=== PATIENT | female | born 1990 | race Caucasian/White ===

== ENCOUNTER 2017-05-09 22:55 | Outpatient (CLI) | payer OTHER, SELFPAY ==
[2017-05-09 23:21] VITALS: BMI 32.6
[2017-05-09 23:53] LABS: ROM Internal Control Test YES-OK TO RESULT pt. (Internal QC); ROM Patient Test Negative (Negative)
[2017-05-10 00:28] VITALS: RESP 18
--- NOTE | 2017-07-02 13:15 | OB.TRI.NOTE ---
History of Present Illness Reason For Visit: false labor Home Medications Medication Instructions Recorded Epinephrine [Epi Pen] 0.3 mg IM X1 09/07/16 Vit No.130/Iron/FA 1 each PO DAILY 09/07/16 [ Tablet] Acetaminophen [Tylenol] 325 mg PO Q8H 05/09/17 Naproxen [Naprosyn] 250 - 500 mg PO Q8H PRN PRN tablet 05/19/17 Allergies bee venom protein (honey bee) Allergy (Verified 05/17/17 15:37) Anaphylaxis codeine Allergy (Verified 05/17/17 15:37) Other hallucinations Penicillins [PCN] Allergy (Verified 05/17/17 15:37) Anaphylaxis Sulfa (Sulfonamide Antibiotics) Allergy (Verified 05/17/17 15:37) Rash latex Adverse Reaction (Verified 05/17/17 15:37) Rash Physical Exam Vitals: Vital Signs Resp 18 05/10/17 00:28 Impression/Plan False labor
== END 2017-05-10 00:28 | disposition home or self-care (01) ==
LOC: WPOUT 23:20 → WP 23:20
PROVIDERS: Family Provider Student in an Organized Health Care Education/Training Program; PCP Student in an Organized Health Care Education/Training Program; Visit Provider Obstetrics & Gynecology
DX: O47.9 False labor, unspecified (principal); Z3A.00 Weeks of gestation of pregnancy not specified
CPT/HCPCS: 59025; 59050; 84112; 99218; G0378

== ENCOUNTER 2018-06-13 20:31 | Emergency (ER) | payer OTHER, SELFPAY ==
[2018-06-13 20:31] VITALS: BP 133/67; PULSE 104; RESP 16; TEMP 36.6; O2SAT 98; BMI 27.7
[2018-06-13 22:04] VITALS: BP 112/67; PULSE 78; RESP 16; O2SAT 98
--- NOTE | 2018-06-13 22:57 | NURSING ---
+ PREG TEST NOTIFIED
[2018-06-13 22:58] LABS: Pregnancy, Serum, hCG Quali. POSITIVE Negative (0-9 Nonpreg)
--- NOTE | 2018-06-13 23:07 | ED.DCSUM_ITS ---
- ER Visit Summary Date of Service: 06/13/18 Chief Complaint: Vaginal bleed History of Present Illness: The patient is a 27 F who is at approximately 12 weeks gestation presents to the emergency department vaginal bleeding. She states that she had sudden onset vaginal bleeding today. She states she was in her normal state of health. She states that she bled for a pad, change in blood through again. Since then, her bleeding is stopped. She was concerned that she is early in and wanted to be evaluated. She did not require RhoGam with her first . She has already had documented intrauterine ultrasound. Physical Examination: Vital signs reviewed General: Well-nourished, well-developed Head: Normocephalic, atraumatic Eyes: Pupils equal and reactive, extraocular muscles intact Neck, supple, no lymphadenopathy Heart: Regular rate and rhythm Respiratory: No distress, clear bilaterally Abdomen: Soft, nontender, nondistended, no peritoneal signs Back: Nontender Extremities: Nontender, no edema, no cords Skin: Normal color no rash Neuro: Alert and oriented, no focal or lateralizing deficits Test Results: [] Emergency Department Course and Treatment: Bedside ultrasound was completed. Patient is a single live intrauterine . Fluid is normal. The fetus is very active. Heart rates are 150s and reactive. There is no free fluid in the pelvis. Abdomen is soft and nontender. My suspicion is that the patient had some early bleeding but it is now since resolved. She does have follow-up in the morning with [facility] SALES REPRESENTATIVE. She was counseled that any tenderness bleeding is early , there is risk of miscarriage. She will continue pelvic rest. She will follow-up with MEMBERSH[employer] SALES REPRESENTATIVE in the morning. Treatment Plan: [] Disposition: Discharge Impression: 1. Threatened miscarriage This note was generated with [employer] dictation software. It may contain incorrect words, spelling, and punctuation that were not noted in review of the chart prior to signing ED Disposition - Plan for ED Patient: Chief Complaint: Vag Bld, Preg Instructions: ED Miscarriage Poss Referrals: Teodoro Rinaldi DO [Primary Care Provider] -
[2018-06-13 23:26] VITALS: BP 112/53; PULSE 77; RESP 16; O2SAT 96
== END 2018-06-13 23:27 | disposition home or self-care (01) ==
LOC: ED 23:11
PROVIDERS: Emergency Medicine; Emergency Provider Emergency Medicine; Family Provider Student in an Organized Health Care Education/Training Program; PCP Student in an Organized Health Care Education/Training Program
DX: O20.0 Threatened abortion (principal); Z3A.12 12 weeks gestation of pregnancy
CPT/HCPCS: 84703; 86900; 99283; A4216

== ENCOUNTER 2018-12-23 07:20 | Inpatient (IN) | payer OTHER, SELFPAY ==
[2018-12-23 07:23] VITALS: BMI 30.4
[2018-12-23] MEDS: Lactated Ringers 1,000 ML 50 ML IV ×2 (07:35→09:40)
[2018-12-23] MEDS: Oxytocin 30 units/NS 500 ml 30 UNITS/500 ML IV.SOLN IV (07:55)
[2018-12-23 08:00] LABS: Absolute Lymphocyte Count 1.87 X10^3/uL (0.83-4.51); Absolute Neutrophil Count 7.3 X10^3/uL (2.0-7.7); Basophil# 0.04 X10^3/uL; Basophil% 0.4 % (0-1); Eosinophil# 0.01 X10^3/uL; Eosinophils% 0.1 % (0-5); Hematocrit 36.9 % (37-47); Hemoglobin 12.9 g/dL (12.0-15.0); Lymphocyte # 1.87 X10^3/ul (4.0); Lymphocyte % 18.9 % (19-41); Mean Corpuscular Hgb 34.4 pg (27.0-32.0); Mean Corpuscular Volume 98.4 fL (81-99); Mean Platelet Vol. 13.2 fl (6.2-12.0); Monocyte# 0.67 X10^3/uL; Monocyte% 6.8 % (0-10); NRBC Flagged by Analyzer 0 % (0-5); Neutrophil # 7.26 X10^3/uL (2.7-7.7); Neutrophil % 73.5 % (47-70); Platelet Count 174 K/mm3 (150-450); RBC Distribution Width CV 12.8 % (11.6-14.6); RBC Distribution Width SD 45.6 fl (35.1-43.9); Red Blood Count 3.75 M/mm3 (4.2-5.4); White Blood Count 9.9 K/mm3 (4.4-11.0)
--- NOTE | 2018-12-23 08:32 | HP.PCM_ITS ---
History Date of Admission: 05/17/17 Final FEDE: 12/27/18 Final FEDE Source: US <20 weeks Gestational age: 39 Weeks and 3 Days History of this : This is a 28 year-old, 2 para 1-0-0-1 at 39-3/7 weeks gestation with EDC of 12/27/2018 by first trimester ultrasound alone presents for elective induction of labor with favorable cervix. She denies any gross vaginal bleeding or leaking of fluid. She is had a regular contractions. Her is uncomplicated to date. She does have a history of depression. She does desire sterilization after delivery. She did have a history of tobacco use during the . Allergies bee venom protein (honey bee) Allergy (Verified 06/13/18 20:33) Anaphylaxis codeine Allergy (Verified 06/13/18 20:33) Other hallucinations Penicillins [PCN] Allergy (Verified 06/13/18 20:33) Anaphylaxis Sulfa (Sulfonamide Antibiotics) Allergy (Verified 06/13/18 20:33) Rash latex Adverse Reaction (Verified 06/13/18 20:33) Rash Home Medications: Home Medications Epi Pen (for allergic rxn) 0.3 mg IM X1 09/07/16 Vit No.130/Iron/Folic [ Tablet] 1 each PO DAILY 09/07/16 Acetaminophen [Tylenol] 325 mg PO Q8H 05/09/17 Albuterol Sulfate [Ventolin Hfa] 2 puff IH Q4H PRN PRN 06/13/18 Famotidine/Ca Carb/Mag Hydrox [Pepcid Complete Tablet Chew] 1 ea PO 12/23/18 Smoking Status: Current every day smoker Alcohol: None Number of Fetus(es): 1 Heart Tracing: Baseline, moderate variability, spontaneous accelerations, no decelerations. Category 1 TOCO Analysis: Irregular contractions History Past Pregnancies: Past Pregnancies Delivery Date Name GA/Weeks Outcome Route Weight Gender Labor Length Anesthesia Delivery Location Provider FOB Expected Delivery Method: Spontaneous Vaginal Review of Systems Constitutional: Denies: Chills, Fever Cardiovascular: Denies: Chest Pain Respiratory: Denies: Cough Gastrointestinal: Denies: Abdominal Pain, Vomiting Gynecological: Denies: Vaginal bleeding, Vaginal discharge, Vaginal itching Neurological: Denies: Balance problems, Slurred speech, Seizures Hematologic/ Lymphatic: Denies: Hx of blood clot Physical Exam General: Alert, Cooperative, No apparent distress Cardiovascular: Regular rate Lungs: Normal air movement Abdomen: Soft, Non Tender, Non-Distended, Gravid, Appropriate for Gestational Age - 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 Risk benefits and alternatives to injections were discussed with patient, consent was signed and she desires to proceed. We will proceed with Pitocin and artificial rupture membranes. Artificial rupture membranes was performed this morning with return of moderate amount of clear fluid. Patient may have epidural, Nubain or nitrous oxide as needed for pain control. Estimated weight is less than 4500 g clinically and pelvis clinically adequate to expect vaginal delivery. Patient would like tubal ligation, I discussed with her this will depend on staffing, the acuity of the unit and availability of anesthesia. If we are unable to accommodate this while she is inpatient, we will schedule for her before her maternity leave ends. Patient states understanding and agreement.
[2018-12-23] MEDS: fentaNYL-bupivacaine (epidural) 100 ML BAG EPIDURAL (10:09)
[2018-12-23] MEDS: Oxytocin 30 units/NS 500 ml 30 UNITS/500 ML IV.SOLN 334 UNITS IV (13:45)
--- NOTE | 2018-12-23 13:53 | OP.PCM_ITS ---
Vaginal Delivery Maternal Presentation: Elective Induction Method of Induction: Pitocin, Amniotomy Amniotic Membrane Rupture Type: Artificial Amniotic Fluid Description: Clear Final FEDE: 12/27/18 Final FEDE Source: US <20 weeks Gestational age: 39 Weeks and 3 Days Date of Procedure: 12/23/18 Pre-Operative Diagnosis: term gestation- elective IOL Post-Operative Diagnosis: same, live female infant Surgery/ Procedure Performed: Spontaneous Vaginal Delivery Type of Anesthesia: Epidural Description of Procedure: of a live male infant born without complication. Cord clamping performed. Presentation: Vertex Placental Delivery Description: Spontaneous Placenta Disposition: [facility] Cord Vessel Description: 3 Vessels Cord Entanglement: None Drain: Martinez to straight drain Estimated Blood Loss: 250 Infant A gender: Male (1 minute): 8 (5 minute): 9 Episiotomy Description: None Laceration: Perineal Extension/lac - Pared with 2-0 Vicryl. Skin closed with 3- 0 Rapide, 2nd degree Medications given after delivery: IV Pitocin Complications: None
[2018-12-23] MEDS: Oxytocin 30 units/NS 500 ml 30 UNITS/500 ML IV.SOLN 167 UNITS IV (14:15)
[2018-12-23] MEDS: Methylergonovine 0.2 MG/ML Ampul IM (14:23)
[2018-12-23 19:45] VITALS: BP 119/68; PULSE 99; RESP 16; TEMP 36.7; O2SAT 97
[2018-12-24 00:30] VITALS: BP 123/67; PULSE 79; RESP 18; TEMP 36.6; O2SAT 97
[2018-12-24] MEDS: Acetaminophen 500 MG Tablet 1000 MG PO ×2 (00:40→09:26)
[2018-12-24 04:56] VITALS: BP 115/68; PULSE 71; RESP 18; TEMP 37; O2SAT 99
[2018-12-24 08:45] VITALS: BP 120/79; PULSE 102; RESP 18; TEMP 36.6
[2018-12-24 12:00] VITALS: BP 110/72; PULSE 78; RESP 16; TEMP 36.2
[2018-12-24] MEDS: Ibuprofen 600 MG Tablet PO (12:01)
[2018-12-24 12:22] LABS: Absolute Neutrophil Count 9.3 X10^3/uL (2.0-7.7); Basophil# 0.05 X10^3/uL; Basophil% 0.4 % (0-1); Eosinophil# 0.01 X10^3/uL; Eosinophils% 0.1 % (0-5); Hematocrit 31.5 % (37-47); Hemoglobin 11.3 g/dL (12.0-15.0); Lymphocyte % 19.5 % (19-41); Mean Corp Hgb Conc 35.9 g/dL (32-36); Mean Corpuscular Hgb 35.5 pg (27.0-32.0); Mean Corpuscular Volume 99.1 fL (81-99); Mean Platelet Vol. 12.2 fl (6.2-12.0); Monocyte# 0.93 X10^3/uL; Monocyte% 7.3 % (0-10); NRBC Flagged by Analyzer 0 % (0-5); Neutrophil # 9.25 X10^3/uL (2.7-7.7); Neutrophil % 72.2 % (47-70); Platelet Count 167 K/mm3 (150-450); RBC Distribution Width CV 12.6 % (11.6-14.6); RBC Distribution Width SD 45.6 fl (35.1-43.9); Red Blood Count 3.18 M/mm3 (4.2-5.4); White Blood Count 12.8 K/mm3 (4.4-11.0)
--- NOTE | 2018-12-24 12:32 | PCM.PN.OB ---
Subjective: Doing well per patient and nursing staff. Ambulating and taking PO without difficulty. Voiding and passing flatus. Pain controlled. Bottle feeding. Desires discharge home today. - Physical Exam General: Alert, Oriented x3, Cooperative HEENT: Atraumatic, Normocephalic Neck: Trachea Midline Lungs: Clear to auscultation, Normal air movement, No rhonchi, No wheeze Cardiovascular: Regular rate, Regular Rhythm, No murmurs Abdomen: Bowel Sounds Present, - - Fundus firm 2 below, appropriatly tender Extremities: No edema Psych/Mental Status: Normal Affect, Appropriate Vital Signs Temp Pulse Resp BP Pulse Ox 98 F 102 H 18 120/79 99 12/24/18 08:45 12/24/18 08:45 12/24/18 08:45 12/24/18 08:45 12/24/18 04:56 Oxygen Delivery Method Room Air Weight: 182 lb 9.6 oz Body Mass Index (BMI) 30.4 Intake and Output for Last 24 Hours 12/22/18 12/23/18 12/24/18 23:59 23:59 23:59 Intake Total 1993 / 1993 Output Total 1600 / 1600 Balance 394 / 394 Laboratory Tests Past 24 Hrs 12/24/18 12:15 WBC 12.8 H RBC 3.18 L Hgb 11.3 L Hct 31.5 L MCV 99.1 H MCH 35.5 H MCHC 35.9 RDW Std Deviation 45.6 H RDW Coeff of Narciso 12.6 Plt Count 167 MPV 12.2 H Immature Gran % (Auto) 0.500 Neut % (Auto) 72.2 H Lymph % (Auto) 19.5 [place] % (Auto) 7.3 Eos % (Auto) 0.1 Baso % (Auto) 0.4 Absolute Neuts (auto) 9.3 H Absolute Lymphs (auto) 2.50 Absolute Nucleated RBC 0.00 Nucleated RBC % 0 Medical Necessity - Tobacco Use Smoking Status: Current every day smoker Assessment/Plan A:PPD #1 P: 1) Home going instructions given. 2) Follow up in 2 weeks and 6 weeks for visit 3) Declines Rx for Ibuprofen. Will get OTC 4) Discharge home.
--- NOTE | 2018-12-24 12:38 | DCINST_ITS ---
Discharge Diet: No Restrictions Discharge Activity: Return to Normal Activity, May not drive while taking narcotic pain medications., May Shower, May Take a Tub Bath May resume sexual activity in: 4-6 weeks Weight Bearing Status: Full weight bearing Call your doctor if your incision/area has: Continuous Slow Oozing, Sudden Increased Bleeding, Increased Pain/ Swelling, Increased Redness, Foul Smelling Discharge Call your doctor if you observe: Fever of 101 or Higher, Inability to urinate, Inability to have a bowel movement, Using more than one pad per hour, Shortness of breath, Chest pain, Increased palpitations (irregular heartbeat), Calf discomfort, Uncontrolled pain Instructions: After a Vaginal Additional Instructions: If you experience any of the following, contact your healthcare provider. * Bleeding that soaks a pad every hour for 2 hours * Fever 100.4 or higher * Unrelieved incision or abdominal pain * Swelling, redness, discharge or bleeding from your incision or episiotomy site * Your incision begins to separate * Problems urinating (including inability to urinate or burning while urinating). * Visual changes * Severe headache * Flu-like symptoms * Pain or redness in one of both of your breasts * Pain, warmth, tenderness or swelling in your legs, especially the calf area * Frequent nausea and vomiting * Symptoms of depression or anxiety If you experience any of the following, call 911 or go to the nearest Emergency Room. * Chest pain * Problems breathing * Seizure activity * Partial or complete paralysis of a body part, slurred speech, weakness or drooping of the face, or a sudden inability to walk or hold your balance Allergies/Adverse Reactions: Allergies bee venom protein (honey bee) Allergy (Verified 06/13/18 20:33) Anaphylaxis codeine Allergy (Verified 06/13/18 20:33) Other hallucinations Penicillins [PCN] Allergy (Verified 06/13/18 20:33) Anaphylaxis Sulfa (Sulfonamide Antibiotics) Allergy (Verified 06/13/18 20:33) Rash latex Adverse Reaction (Verified 06/13/18 20:33) Rash Medications to take at Discharge Epi Pen (for allergic rxn) 0.3 mg IM X1 09/07/16 Vit No.130/Iron/Folic [ Tablet] 1 each PO DAILY 09/07/16 Acetaminophen [Tylenol] 325 mg PO Q8H 05/09/17 Albuterol Sulfate [Ventolin Hfa] 2 puff IH Q4H PRN PRN 06/13/18 Famotidine/Ca Carb/Mag Hydrox [Pepcid Complete Tablet Chew] 1 ea PO 12/23/18 Please Follow Up With: Aylin Burrell MD When: Call to make an appointment with your doctor in 2 weeks and 6 weeks. Primary Care Physician: Teodoro Rinaldi DO [Primary Care Provider] - Test Results: Test results from this visit will be discussed in further detail at your follow- up appointment, if applicable.
--- NOTE | 2018-12-24 15:16 | CASEMGMT ---
Social Work Referral Date: 12/23/18 Date of Assessment: 12/24/18 Reason for Consult: Mother of baby (MOB) with History of anxiety and depression Informant: Nursing staff, chart. Personal Status Mentation: MOB A&Ox3 Present during assessment: MOB and infant Hx : 2 Hx Para: 1 Infant Gender: Male Name: Miguel Talamantes (1min): 8 (5min): 9 Care: Adequate Alleged father: Phil Talamantes Alleged father involved: Yes Length of Relationship with alleged father of baby: MOB and FOB have been in a relationship for 9 years. Number of Children in the home: This is now younger brother to Giacomo who is 19 months old. with this infant was not planned but accepted. Custody Comments: MOB and FOB have custody of this and Giacomo Living Arrangements: MOB, FOB, Giacomo, and now this infant live in a private home Education: High School Diploma Employment: [employer], MOB has 6 weeks off work. FOB also has a full-time job. Family Dynamics/Relationships: MOB reporting positive relationship with FOB. MOB denies any history of abuse. Supports: MOB identifies FOB and FOB's family as main support. MOB reporting that MOB's family will be coming to visit next week. Substance Abuse Hx and Current Pattern of Use MOB denies any Alcohol, Methamphetamine, Cocaine, Marijuana, Prescriptions Drugs, or Heroin abuse. MOB reporting to smoke a half pack of cigarettes a day. MOB reporting that FOB also smokes tobacco. MOB reporting to be aware of risk of smoking around children/infant. MOB reporting that FOB and MOB only smoke outside of the home. Mental Health Hx and Current Status MOB reporting a history of depression and anxiety and to have no history of medication to manage depression/anxiety. MOB denies suicidal thoughts and reporting to feel good. MOB admitting to have had some depression with first and to already have an appointment set up with Dr. Rinaldi, RUI's PCP for Jan.05 to follow up on patient mental health. This bilingual social worker acknowledging patient proactive measures as a strength. MOB aware of continued risk for depression. MOB and this bilingual social worker engaged in conversation about depression signs and symptoms. Items/Skills List for Infants Care Supplies: MOB reporting to have all needed supplies (crib, clothing, bottles, formula etc.) Bonding With Infant: MOB reporting to be bonding and connecting with infant. MOB planning to bottle feed. Observed Maternal/Paternal Child interaction: MOB holding infant during assessment. MOB gazing towards infant often during conversation. Emotional Assessment: MOB presenting with a positive affect. MOB engaged in conversation with this bilingual social worker. Control: MOB plans to pursue control. Resources JFS: N/A WIC: N/A People to People: N/A Community Action: N/A Help Me Grow: Information provided, no referral made. Children Protective Services Hx: MOB denies any history. Transportation: MOB reporting no transportation issues/concerns. Intervention: MOB provided with resources on depression, safe sleeping, Help Me Grow, and [facility] general resources. Plan: MOB, FOB, and this plan to return to home where Giacomo lives as well. Myah ROSARIO, MIQUEL
[2018-12-24 16:10] VITALS: BP 113/73; PULSE 94; RESP 18; TEMP 36.4
== END 2018-12-24 16:20 | disposition home or self-care (01) | DRG 807 ==
PROVIDERS: Advanced Practice Midwife; Admitting Provider Obstetrics & Gynecology; Family Provider Student in an Organized Health Care Education/Training Program; PCP Student in an Organized Health Care Education/Training Program; Referring Provider Obstetrics & Gynecology; Visit Provider Obstetrics & Gynecology
DX: O99.334 Smoking (tobacco) complicating childbirth (principal); Z37.0 Single live birth; O70.1 Second degree perineal laceration during delivery; F17.200 Nicotine dependence, unspecified, uncomplicated; Z3A.39 39 weeks gestation of pregnancy
CPT/HCPCS: 59025; 59050; 85025; 86850; 86900; 99218; J7120; G0378

== ENCOUNTER 2019-02-18 09:54 | Emergency (ER) | payer OTHER, SELFPAY ==
[2019-02-18 09:55] VITALS: BP 139/79; PULSE 92; RESP 21; TEMP 36.9; O2SAT 99; BMI 27.4
[2019-02-18 10:29] LABS: Absolute Lymphocyte Count 1.07 X10^3/uL (0.83-4.51); Absolute Neutrophil Count 4.3 X10^3/uL (2.0-7.7); Basophil# 0.04 X10^3/uL; Basophil% 0.7 % (0-1); Eosinophil# 0.15 X10^3/uL; Eosinophils% 2.5 % (0-5); Hematocrit 37.4 % (37-47); Hemoglobin 12.7 g/dL (12.0-15.0); Lymphocyte # 1.07 X10^3/ul (4.0); Lymphocyte % 17.5 % (19-41); Mean Corpuscular Hgb 33.6 pg (27.0-32.0); Mean Corpuscular Volume 98.9 fL (81-99); Mean Platelet Vol. 10.9 fl (6.2-12.0); Monocyte# 0.48 X10^3/uL; Monocyte% 7.9 % (0-10); NRBC Flagged by Analyzer 0 % (0-5); Neutrophil # 4.33 X10^3/uL (2.7-7.7); Neutrophil % 70.9 % (47-70); Platelet Count 171 K/mm3 (150-450); RBC Distribution Width CV 11.9 % (11.6-14.6); RBC Distribution Width SD 43.4 fl (35.1-43.9); Red Blood Count 3.78 M/mm3 (4.2-5.4); White Blood Count 6.1 K/mm3 (4.4-11.0)
--- NOTE | 2019-02-18 10:33 | RAD_ITS ---
STUDY: X-RAY CHEST REASON FOR EXAM: Female, 28 years old. Chest pain. TECHNIQUE: PA and lateral views of the chest. COMPARISON: None. FINDINGS: The lungs are clear and expanded. There is no demonstrated pleural abnormality. Normal size heart. Normal mediastinum and safia. Normal visualized pulmonary arteries. Normal visualized aortic arch and descending thoracic aorta. Normal visualized thoracic spine. Normal visualized ribs, clavicles, and shoulders. There is no demonstrated abnormality of the visualized soft tissue structures of the upper abdomen. RAD/Chest PA and Lateral IMPRESSION: No evidence of acute cardiopulmonary process. Electronically Signed: Moiz Mccann DO at 11:04 EDT , Service support ,
[2019-02-18] MEDS: Ketorolac 15 MG/ML Vial IV (10:37)
[2019-02-18 10:45] LABS: Anion Gap 4 (5-15); BUN 8 mg/dL (7-18); BUN/Creat Ratio 9.5 RATIO (10-20); Calcium,Total 8.4 mg/dL (8.5-10.1); Chloride 109 mmol/L (98-107); Creatinine, Serum 0.84 mg/dL (0.55-1.02); EST Glomerular Filtration Rate 86 mL/min (>60); Est Glom Filt Rate - Afr Amer 104 mL/min (>60); Estimated Creatinine Clearance 90.52 ml/min; Glucose 86 mg/dL (74-106); Potassium 3.7 mmol/L (3.5-5.1); Sodium Level 139 mmol/L (136-145)
--- NOTE | 2019-02-18 11:20 | ED.VISSUMM ---
- ER Visit Summary Date of Service: 02/18/19 Chief Complaint: Chest pain History of Present Illness: The patient is a 28 F with right upper and lateral chest pain for several days. She also has fevers, sore throat, and cough. She was seen at an outside ED and had a negative work-up including a CTA of her chest. No history of cardiac disease, vascular disease, or lung disease. Physical Examination: Afebrile and vital signs unremarkable. HEENT shows 1+ tonsils bilaterally with exudates. Uvula midline. Airway normal. Mild left anterior cervical lymphadenopathy. Neck otherwise normal with good range of motion. Heart regular. Lungs clear. Skin normal. Abdomen soft and nontender. Test Results: CBC, BMP unremarkable. Strep test negative. Chest x-ray negative. Emergency Department Course and Treatment: Patient likely has a viral illness, possible pleurisy. Her work-up here was negative. Her vitals are reassuring. She is low risk and has no significant past medical history or comorbidities. She had a CTA days ago which was unremarkable. Given her persistent symptoms with pharyngitis, exudates, and fever. We will treat with azithromycin. This will also provide some pulmonary coverage. Tylenol and/or Motrin for aches and pains and fever. Follow-up with primary care. Treatment Plan: As above Disposition: Discharge Impression: 1. Pharyngitis 2. Chest wall pain This note was generated with [employer] dictation software. It may contain incorrect words, spelling, and punctuation that were not noted in review of the chart prior to signing ED Disposition - Plan for ED Patient: Referrals: Teodoro Rinaldi DO [Primary Care Provider] -
--- NOTE | 2019-02-18 11:22 | ED.DEP ---
ED Disposition - Plan for ED Patient: Instructions: BRONCHITIS, Antiobiotic Treatment (Adult) Prescriptions: Azithromycin [Zithromax Z-Jey] 250 mg PO UD #1 box Prescription Printed Referrals: Teodoro Rinaldi DO [Primary Care Provider] -
[2019-02-18 11:48] VITALS: BP 102/62; PULSE 68; RESP 18; O2SAT 100
== END 2019-02-18 11:49 | disposition home or self-care (01) ==
PROVIDERS: Emergency Provider Emergency Medicine; Family Provider Student in an Organized Health Care Education/Training Program; PCP Student in an Organized Health Care Education/Training Program
DX: R07.89 Other chest pain (principal); J02.9 Acute pharyngitis, unspecified
CPT/HCPCS: 71046; 80048; 85025; 87880; 96374; 99283; A4216